=== PATIENT | male | born 1950 | race Caucasian/White ===

== ENCOUNTER 2021-02-05 17:20 | Inpatient (IN) | payer MEDICARE, OTHER ==
[~2021-02-05] VITALS: Ht 185.4 cm; Wt 142.3 kg
[2021-02-05] MEDS ORDERED: SODIUM CHLORIDE 0.9% 1,000 ML IVB ONE (17:30)
[2021-02-05] MEDS ORDERED: cefTRIAXone 1GM/50ML D5W 50 ML IV ONE (18:00)
[2021-02-05 18:10] LABS: Basophils # (auto) 0 10 ^3/uL (0-0.2); Basophils % (auto) 0.2 % (0.0-2.0); Eosinophils # (auto) 0 10 ^3/uL (0-0.8); Hematocrit 44.3 % (41.0-53.0); Hemoglobin 14.7 g/dL (13.5-17.5); Lymphocytes # (auto) 0.4 10 ^3/uL (0.4-5.4); Lymphocytes % (auto) 2.1 % (10.0-50.0); Mean Corpuscular Hemoglobin 30.3 pg (28.0-32.0); Mean Corpuscular Hgb Conc. 33.3 g/dL (32.0-36.0); Mean Corpuscular Volume 91.1 fL (80.0-100.0); Monocytes # (auto) 1.7 10 ^3/uL (0-1.3); Monocytes % (auto) 8.3 % (0.0-12.0); Neutrophils # (auto) 18.2 10 ^3/uL (1.6-8.6); Neutrophils % (auto) 89.4 % (37.0-80.0); Nucleated Red Blood Cells % 0.1 %; Platelet Count (auto) 384 10^3/uL (140-450); Red Blood Cells 4.86 10^6/uL (4.5-5.90); Red Cell Distribution Width 15.4 % (11.8-14.3); White Blood Cell 20.4 10^3/uL (4.4-10.8)
[2021-02-05 18:21] LABS: INR 1.51 (0.9-1.15); Partial Thromboplastin Time 36.7 sec (23.0-31.2)
[2021-02-05 18:29] LABS: Albumin 2.1 g/dL (3.4-5.0); Calcium 8.1 mg/dL (8.5-10.1); Potassium 4.5 mmol/L (3.5-5.1)
[2021-02-05 18:39] LABS: BUN/Creatinine Ratio 24.4; Total Protein 5.2 g/dL (6.4-8.2)
[2021-02-05] MEDS ORDERED: ACETAMINOPHEN 325 MG TAB PO ONE (19:00)
[2021-02-05] MEDS ORDERED: CLINDAMYCIN 600MG IV 50 ML IV ONE (19:15)
[2021-02-05] MEDS ORDERED: IBUPROFEN 800 MG TAB PO ONE (20:00)
[2021-02-05] MEDS ORDERED: NOREPINEPHRINE 8 MG/250ML KIT 250 ML IV ONE (21:15)
[2021-02-05] MEDS: NOREPINEPHRINE 8 MG/250ML KIT 250 ML IV SCH (21:44)
[2021-02-06] VITALS (51 sets, daily range): BP systolic 85–135; BP diastolic 53–91
[2021-02-06] MEDS ORDERED: VANCOMYCIN PER PHARMACY 0 MG IV SCH (00:45)
[2021-02-06] MEDS ORDERED: SOD CHL 0.45% 1,000 ML IV SCH (00:45)
[2021-02-06] MEDS ORDERED: ONDANSETRON HCL 4 MG/2 ML VIAL IV PRN (00:45)
[2021-02-06] MEDS ORDERED: MORPHINE SULF INJ 2 MG/ML SYRINGE 1ML IV PRN (00:45)
[2021-02-06] MEDS ORDERED: ALBUMIN 5% 250 ML IV ONE (00:45)
[2021-02-06] MEDS ORDERED: NITROGLYCERIN 0.4 MG SL TAB SL PRN (00:45)
[2021-02-06] MEDS ORDERED: HYDROcodone-ACET 5/325MG TAB PO PRN (00:45)
[2021-02-06] MEDS ORDERED: MORPHINE SULFATE 4 MG/ML SYR/VIAL IV PRN (00:45)
[2021-02-06] MEDS ORDERED: ACETAMINOPHEN 325 MG TAB PO PRN (00:45)
[2021-02-06] MEDS ORDERED: DOCUSATE SOD 100 MG CAP PO PRN (00:45)
[2021-02-06] MEDS ORDERED: VANCOMYCIN 1GM/250ML 250 ML IV ONE (01:30)
[2021-02-06 08:17] LABS: Basophils # (auto) 0.1 10 ^3/uL (0-0.2); Eosinophils # (auto) 0 10 ^3/uL (0-0.8); Eosinophils % (auto) 0.1 % (0.0-7.0); Hemoglobin 14.9 g/dL (13.5-17.5); Mean Corpuscular Hgb Conc. 33.1 g/dL (32.0-36.0); Neutrophils # (auto) 23.9 10 ^3/uL (1.6-8.6); Nucleated Red Blood Cells % 0.1 %; Red Blood Cells 4.94 10^6/uL (4.5-5.90)
[2021-02-06 08:19] LABS: Basophils % (auto) 0.2 % (0.0-2.0); Lymphocytes # (auto) 1.2 10 ^3/uL (0.4-5.4); Lymphocytes % (auto) 4.1 % (10.0-50.0); Mean Corpuscular Hemoglobin 30.2 pg (28.0-32.0); Monocytes # (auto) 3.3 10 ^3/uL (0-1.3); Monocytes % (auto) 11.5 % (0.0-12.0); Neutrophils % (auto) 84.1 % (37.0-80.0); Platelet Count (auto) 545 10^3/uL (140-450); Red Cell Distribution Width 15.7 % (11.8-14.3); White Blood Cell 28.4 10^3/uL (4.4-10.8)
[2021-02-06 08:29] LABS: Calcium 8.1 mg/dL (8.5-10.1); Potassium 4.2 mmol/L (3.5-5.1)
[2021-02-06 08:33] LABS: BUN/Creatinine Ratio 29.9; Bilirubin, Total 1.4 mg/dL (0.2-1.0); Total Protein 5.2 g/dL (6.4-8.2)
[2021-02-06] MEDS: ASCORBIC ACID 500 MG TAB PO SCH ×2 (10:00→19:37)
[2021-02-06] MEDS: MULTIPLE VITAMIN TAB PO SCH (10:00)
[2021-02-06] MEDS ORDERED: HEPARIN SODIUM (PORCINE) 5000 UNITS/ML 1ML VIAL SC SCH (10:00)
[2021-02-06] MEDS: FAMOTIDINE (10MG/ML) 2ML VL IV SCH ×2 (10:00→19:37)
[2021-02-06] MEDS: ZINC SULFATE 220mg CAP or TAB PO SCH (10:00)
[2021-02-06] MEDS ORDERED: ENOXAPARIN SOD 120 MG/0.8 ML SYRINGE SC ONE (12:15)
[2021-02-06] MEDS ORDERED: MIRT-66 OR (12:29)
[2021-02-06] MEDS ORDERED: ACET300T2 PO (12:29)
[2021-02-06] MEDS ORDERED: FURO20TA3 PO (12:29)
[2021-02-06] MEDS ORDERED: SILD25TA15 PO (12:29)
[2021-02-06] MEDS ORDERED: METO25TA36 PO (12:29)
[2021-02-06] MEDS ORDERED: DICL1GEL50 TD (12:29)
[2021-02-06] MEDS ORDERED: LISI40TA11 PO (12:29)
[2021-02-06] MEDS ORDERED: TADA5TAB11 PO (12:29)
[2021-02-06] MEDS ORDERED: DABI150C5 PO (12:29)
[2021-02-06] MEDS ORDERED: FAMO20TA10 GT (12:29)
[2021-02-06] MEDS ORDERED: SPIR50TA5 PO (12:29)
[2021-02-06] MEDS: VANCOMYCIN 1GM/250ML 250 ML IV SCH (14:45)
[2021-02-06] MEDS ORDERED: IOPAMIDOL 76 % (ISOVUE-370) 100ML BTL IV ONE (15:27)
[2021-02-06] MEDS: MEROPENEM 1GM IVPB 100 ML IV SCH ×2 (16:30→19:36)
[2021-02-06] MEDS: ENOXAPARIN SOD 120 MG/0.8 ML SYRINGE SC SCH (19:38)
[2021-02-06] MEDS: NOREPINEPHRINE 8 MG/250ML KIT 250 ML IV SCH (22:54)
[2021-02-07] VITALS (42 sets, daily range): BP systolic 79–126; BP diastolic 45–88
[2021-02-07] MEDS: VANCOMYCIN 1GM/250ML 250 ML IV SCH ×2 (01:41→16:58)
[2021-02-07 04:23] LABS: Basophils # (auto) 0 10 ^3/uL (0-0.2); Basophils % (auto) 0.2 % (0.0-2.0); Eosinophils # (auto) 0 10 ^3/uL (0-0.8); Eosinophils % (auto) 0.1 % (0.0-7.0); Hematocrit 39.9 % (41.0-53.0); Hemoglobin 13.5 g/dL (13.5-17.5); Lymphocytes # (auto) 0.5 10 ^3/uL (0.4-5.4); Lymphocytes % (auto) 3.1 % (10.0-50.0); Mean Corpuscular Hemoglobin 30.4 pg (28.0-32.0); Mean Corpuscular Hgb Conc. 33.8 g/dL (32.0-36.0); Monocytes # (auto) 1.7 10 ^3/uL (0-1.3); Monocytes % (auto) 10.1 % (0.0-12.0); Neutrophils # (auto) 14.6 10 ^3/uL (1.6-8.6); Neutrophils % (auto) 86.5 % (37.0-80.0); Platelet Count (auto) 360 10^3/uL (140-450); Red Blood Cells 4.44 10^6/uL (4.5-5.90); Red Cell Distribution Width 15.6 % (11.8-14.3); White Blood Cell 16.8 10^3/uL (4.4-10.8)
[2021-02-07 04:39] LABS: Potassium 3.9 mmol/L (3.5-5.1)
[2021-02-07 04:46] LABS: Albumin 1.7 g/dL (3.4-5.0); BUN/Creatinine Ratio 29.1; Total Protein 4.7 g/dL (6.4-8.2)
[2021-02-07] MEDS: MEROPENEM 1GM IVPB 100 ML IV SCH ×3 (04:49→21:50)
[2021-02-07] MEDS ORDERED: LEVOTHYROXINE SODIUM 50 MCG TAB PO ONE (08:45)
[2021-02-07] MEDS: ENOXAPARIN SOD 120 MG/0.8 ML SYRINGE SC SCH ×2 (09:15→21:51)
[2021-02-07] MEDS: MULTIPLE VITAMIN TAB PO SCH (09:15)
[2021-02-07] MEDS: FAMOTIDINE (10MG/ML) 2ML VL IV SCH ×2 (09:15→21:50)
[2021-02-07] MEDS: ZINC SULFATE 220mg CAP or TAB PO SCH (09:15)
[2021-02-07] MEDS: ASCORBIC ACID 500 MG TAB PO SCH ×2 (09:15→21:51)
[2021-02-07 12:45] LABS: Urine WBC None Seen /hpf (0 - 3)
[2021-02-07 13:19] LABS: Urine Bacteria FEW /hpf (None Seen); Urine Blood Negative /uL (Negative); Urine Specific Gravity 1.038 (1.001-1.035)
[2021-02-07] MEDS ORDERED: IBUPROFEN 600 MG TAB PO ONE (19:45)
[2021-02-07] MEDS: NOREPINEPHRINE 8 MG/250ML KIT 250 ML IV SCH (21:15)
[2021-02-08] VITALS (23 sets, daily range): BP systolic 74–121; BP diastolic 41–77
[2021-02-08] MEDS: VANCOMYCIN 1GM/250ML 250 ML IV SCH ×2 (01:00→13:11)
[2021-02-08 04:26] LABS: Basophils # (auto) 0.1 10 ^3/uL (0-0.2); Basophils % (auto) 0.4 % (0.0-2.0); Eosinophils # (auto) 0.1 10 ^3/uL (0-0.8); Eosinophils % (auto) 0.6 % (0.0-7.0); Hematocrit 40.8 % (41.0-53.0); Hemoglobin 13.5 g/dL (13.5-17.5); Lymphocytes % (auto) 7.2 % (10.0-50.0); Mean Corpuscular Hemoglobin 30.2 pg (28.0-32.0); Mean Corpuscular Hgb Conc. 33.1 g/dL (32.0-36.0); Mean Corpuscular Volume 91.2 fL (80.0-100.0); Monocytes # (auto) 1.7 10 ^3/uL (0-1.3); Monocytes % (auto) 11.8 % (0.0-12.0); Neutrophils # (auto) 11.4 10 ^3/uL (1.6-8.6); Platelet Count (auto) 374 10^3/uL (140-450); Red Blood Cells 4.47 10^6/uL (4.5-5.90); Red Cell Distribution Width 15.5 % (11.8-14.3); White Blood Cell 14.2 10^3/uL (4.4-10.8)
[2021-02-08 04:42] LABS: Potassium 5.1 mmol/L (3.5-5.1)
[2021-02-08 04:45] LABS: BUN/Creatinine Ratio 25.8; Calcium 8.2 mg/dL (8.5-10.1); Magnesium 2.1 mg/dL (1.6-2.6); Phosphorus 2.6 mg/dL (2.5-4.90)
[2021-02-08] MEDS: MEROPENEM 1GM IVPB 100 ML IV SCH ×2 (06:00→14:00)
[2021-02-08] MEDS ORDERED: LEVOTHYROXINE SODIUM 50 MCG TAB PO SCH (07:00)
[2021-02-08] MEDS: ASCORBIC ACID 500 MG TAB PO SCH (10:00)
[2021-02-08] MEDS: ENOXAPARIN SOD 120 MG/0.8 ML SYRINGE SC SCH (10:00)
[2021-02-08] MEDS: ZINC SULFATE 220mg CAP or TAB PO SCH (10:00)
[2021-02-08] MEDS: MULTIPLE VITAMIN TAB PO SCH (10:00)
[2021-02-08] MEDS: FAMOTIDINE (10MG/ML) 2ML VL IV SCH (10:12)
== END 2021-02-08 18:45 | disposition short-term general hospital (02) | DRG 871 ==
LOC: EDBD 17:20 → ER 17:20 → TELE 02-06 01:00 → ICU WEST 02-06 06:30 → TELE-EAST 02-08 14:45
PROVIDERS: ADMIT Nurse Practitioner Family; ATTEND Internal Medicine
PROC: 05HC33Z Insertion of Infusion Device into Left Basilic Vein, Percutaneous Approach (ICD-10-PCS; principal; 2021-02-07)
PROC: B54NZZA Ultrasonography of Left Upper Extremity Veins, Guidance (ICD-10-PCS; 2021-02-07)
DX: A41.9 Sepsis, unspecified organism (principal); I50.43 Acute on chronic combined systolic (congestive) and diastolic (congestive) heart failure; R65.21 Severe sepsis with septic shock; U07.1 COVID-19; L03.116 Cellulitis of left lower limb; J91.8 Pleural effusion in other conditions classified elsewhere; Z68.1 Body mass index [BMI] 19.9 or less, adult; L97.909 Non-pressure chronic ulcer of unspecified part of unspecified lower leg with unspecified severity; I48.20 Chronic atrial fibrillation, unspecified; E03.9 Hypothyroidism, unspecified; E86.9 Volume depletion, unspecified; I73.9 Peripheral vascular disease, unspecified; K74.60 Unspecified cirrhosis of liver; E66.01 Morbid (severe) obesity due to excess calories; E78.5 Hyperlipidemia, unspecified; I11.0 Hypertensive heart disease with heart failure; K76.0 Fatty (change of) liver, not elsewhere classified; K21.9 Gastro-esophageal reflux disease without esophagitis; I89.0 Lymphedema, not elsewhere classified; S81.802A Unspecified open wound, left lower leg, initial encounter; X58.XXXA Exposure to other specified factors, initial encounter; Y93.89 Activity, other specified; Y92.89 Other specified places as the place of occurrence of the external cause; Y99.8 Other external cause status
CPT/HCPCS: 36415; 71045; 75635; 76604; 76775; 80048; 80053; 80202; 81001; 83036; 83605; 83735; 83880; 84100; 84439; 84443; 85025; 85610; 85652; 85730; 86141; 86850; 86900; 86901; 87040; 87076; 87081; 87086; 87205; 87426; 93306; 93926; 93970; 96361; 96365; 96366; 96367; 99291; G0378; J0696; J2185; J3490

== ENCOUNTER 2021-08-22 11:45 | Emergency (ER) | payer MEDICARE, OTHER ==
[~2021-08-22] VITALS: Ht 182.9 cm; Wt 127.0 kg
[~2021-08-22 11:45] MED LIST: ACET300T2 PO; DABI150C5 PO; DICL1GEL50 TD; FAMO20TA10 GT; FURO20TA3 PO; MAGN400T40 PO; MIRT1TAB38 PO; RIFA550T PO; SILD25TA15 PO; SPIR50TA5 PO
[2021-08-22] MEDS ORDERED: FUROSEMIDE 40 MG/4 ML VIAL IV ONE (12:00)
[2021-08-22] MEDS ORDERED: cefTRIAXone 1GM/50ML D5W 50 ML IV ONE (12:30)
[2021-08-22] MEDS ORDERED: CLINDAMYCIN 900MG IV 50 ML IV ONE (12:30)
[2021-08-22 13:07] LABS: Hematocrit 42.2 % (41.0-53.0); Hemoglobin 13.9 g/dL (13.5-17.5); Mean Corpuscular Hemoglobin 27.2 pg (28.0-32.0); Mean Corpuscular Hgb Conc. 32.9 g/dL (32.0-36.0); Mean Corpuscular Volume 82.7 fL (80.0-100.0)
[2021-08-22 13:09] LABS: Red Cell Distribution Width 20.1 % (11.8-14.3)
[2021-08-22 13:12] LABS: INR 1.21 (0.9-1.15); Partial Thromboplastin Time 29.3 sec (23.6-33.0); White Blood Cell 31.6 10^3/uL (4.4-10.8)
[2021-08-22 13:13] LABS: Basophils % (manual) 0 (0.0-2.0); Blast Cells 0; Eosinophils % (manual) 0 (0-7); Metamyelocytes % 0; Myelocytes % 0; Promyelocytes % 0; Reactive Lymphocytes 0
[2021-08-22 13:16] LABS: Albumin 1.6 g/dL (3.4-5.0); Anion Gap 6 (5-15); Blood Urea Nitrogen 24 mg/dL (7-18); Calcium 7.9 mg/dL (8.5-10.1); Carbon Dioxide 25 mmol/L (21-32); Chloride 109 mmol/L (98-107); Glucose 112 mg/dL (74-106); Potassium 4.2 mmol/L (3.5-5.1); Sodium 140 mmol/L (136-145)
[2021-08-22 13:20] LABS: Alanine Aminotransferase 30 U/L (16-61); Alkaline Phosphatase 138 U/L (45-117); Aspartate Aminotransferase 37 U/L (15-37); BUN/Creatinine Ratio 24.5; Bilirubin, Total 1.2 mg/dL (0.2-1.0); GFR African American 97 mL/min; GFR Non-African American 80 mL/min; Total Protein 5.1 g/dL (6.4-8.2)
[2021-08-22 14:41] LABS: Band Neutrophils % (manual) 24; Lymphocytes % (manual) 3 (10.0-50.0); Monocytes % (manual) 4 (0-12)
[2021-08-22 16:51] LABS: Urine Bacteria FEW /hpf (None Seen); Urine Blood Negative /uL (Negative); Urine Mucus FEW (None Seen); Urine Specific Gravity 1.014 (1.001-1.035); Urine WBC 1 /hpf (0 - 3)
[2021-08-23 10:50] VITALS: BP 105/74
== END 2021-08-23 14:55 | disposition short-term general hospital (02) ==
LOC: ER 11:45 → EDBD 11:45 → ER 08-23 14:55
DX: A41.9 Sepsis, unspecified organism (principal); I50.9 Heart failure, unspecified; I48.91 Unspecified atrial fibrillation; E78.5 Hyperlipidemia, unspecified; Z20.822 Contact with and (suspected) exposure to COVID-19
CPT/HCPCS: 36415; 71045; 73700; 80053; 81001; 83605; 83880; 84484; 85007; 85027; 85610; 85730; 87040; 87426; 93005; 93970; 96365; 96366; 96368; 96375; 99285; J0696; J1940; J3490

== ENCOUNTER 2021-09-08 20:08 | Inpatient (IN) | payer MEDICARE, OTHER ==
[~2021-09-08] VITALS: Ht 185.4 cm; Wt 140.2 kg
[2021-09-08 22:20] LABS: Hemoglobin 13.3 g/dL (13.5-17.5); Red Cell Distribution Width 19.5 % (11.8-14.3)
[2021-09-08 22:23] LABS: Hematocrit 40.6 % (41.0-53.0); Mean Corpuscular Hgb Conc. 32.9 g/dL (32.0-36.0); Mean Corpuscular Volume 82.3 fL (80.0-100.0); Red Blood Cells 4.94 10^6/uL (4.5-5.90)
[2021-09-08 22:25] LABS: White Blood Cell 30.8 10^3/uL (4.4-10.8)
[2021-09-08 22:27] LABS: Basophils % (manual) 0 (0.0-2.0); Blast Cells 0; Eosinophils % (manual) 0 (0-7); Lymphocytes % (manual) 0 (10.0-50.0); Metamyelocytes % 0; Myelocytes % 0; Promyelocytes % 0; Reactive Lymphocytes 0
[2021-09-08 22:30] LABS: INR 1.25 (0.9-1.15)
[2021-09-08 22:39] LABS: Albumin 1.8 g/dL (3.4-5.0); Calcium 8.4 mg/dL (8.5-10.1); Magnesium 2.1 mg/dL (1.6-2.6); Potassium 4.9 mmol/L (3.5-5.1)
[2021-09-08 22:41] LABS: Lactic Acid w/Reflex 2.5 mmol/L (0.4-2.0)
[2021-09-08 22:43] LABS: Band Neutrophils % (manual) 8; Monocytes % (manual) 2 (0-12)
[2021-09-08 22:47] LABS: BUN/Creatinine Ratio 21.6; Bilirubin, Total 1.5 mg/dL (0.2-1.0); CRP High Sensitivity 3.11 mg/dL (< 0.3); Total Protein 5.5 g/dL (6.4-8.2)
[2021-09-08] MEDS ORDERED: SODIUM CHLORIDE 0.9% 2,000 ML IV ONE (23:30)
[2021-09-08] MEDS ORDERED: PIPERACILLIN-TAZOB 2.25GM 50 ML IV ONE (23:30)
[2021-09-08] MEDS ORDERED: VANCOMYCIN 1GM/250ML 250 ML IV ONE (23:30)
[2021-09-09] MEDS ORDERED: SODIUM CHLORIDE 0.9% 1,000 ML IV ONE (01:00)
[2021-09-09 04:55] LABS: Lactic Acid w/Reflex 2.2 mmol/L (0.4-2.0)
[2021-09-09] MEDS ORDERED: ONDANSETRON HCL 4 MG/2 ML VIAL IV PRN (06:00)
[2021-09-09] MEDS ORDERED: MORPHINE SULFATE INJECTION 2 MG/ML SYRG IV PRN (06:00)
[2021-09-09] MEDS ORDERED: NITROGLYCERIN 0.4 MG SL TAB SL PRN (06:00)
[2021-09-09] MEDS ORDERED: VANCOMYCIN PER PHARMACY 0 MG IV SCH (06:00)
[2021-09-09] MEDS ORDERED: ALBUMIN 5% 250 ML IV ONE (06:00)
[2021-09-09] MEDS ORDERED: rifAXIMin 550 MG TAB PO SCH (10:00)
[2021-09-09] MEDS: FUROSEMIDE 40 MG TAB PO SCH (10:36)
[2021-09-09] MEDS: PIPERACILLIN-TAZOB 3.375GM 100 ML IV SCH ×3 (10:36→18:14)
[2021-09-09] MEDS: PANTOPRAZOLE 40 MG TAB PO SCH (10:37)
[2021-09-09] MEDS: DABIGATRAN 75 MG CAP PO SCH ×2 (10:37→22:16)
[2021-09-09] MEDS ORDERED: VANCOMYCIN 1GM/250ML 250 ML IV SCH (15:00)
[2021-09-09] MEDS: DOPamine 1600MCG/ML D5W 250 ML IV SCH (20:50)
[2021-09-09 23:35] VITALS: BP 114/72
[2021-09-10] MEDS: PIPERACILLIN-TAZOB 3.375GM 100 ML IV SCH ×5 (00:24→23:06)
[2021-09-10 02:16] VITALS: BP 114/72
[2021-09-10 02:27] LABS: Protein, Urine 13.8 mg/dL (0.0-11.9)
[2021-09-10 03:41] LABS: Creatinine, Urine 70.6 mg/dL (30.0-125.0)
[2021-09-10 05:08] VITALS: BP 103/71
[2021-09-10] MEDS ORDERED: FURO40TA4 PO (05:17)
[2021-09-10 05:57] LABS: Eosinophils # (auto) 0.1 10 ^3/uL (0-0.8); Hematocrit 35.3 % (41.0-53.0); Lymphocytes # (auto) 0.9 10 ^3/uL (0.4-5.4); Monocytes # (auto) 0.8 10 ^3/uL (0-1.3); Neutrophils # (auto) 11.2 10 ^3/uL (1.6-8.6)
[2021-09-10 05:59] LABS: Basophils # (auto) 0.1 10 ^3/uL (0-0.2); Basophils % (auto) 0.4 % (0.0-2.0); Hemoglobin 11.4 g/dL (13.5-17.5); Lymphocytes % (auto) 6.8 % (10.0-50.0); Mean Corpuscular Hemoglobin 26.7 pg (28.0-32.0); Mean Corpuscular Hgb Conc. 32.3 g/dL (32.0-36.0); Mean Corpuscular Volume 82.8 fL (80.0-100.0); Monocytes % (auto) 6.3 % (0.0-12.0); Neutrophils % (auto) 85.5 % (37.0-80.0); Nucleated Red Blood Cells % 0.1 %; Red Blood Cells 4.26 10^6/uL (4.5-5.90); Red Cell Distribution Width 19.3 % (11.8-14.3); White Blood Cell 13.1 10^3/uL (4.4-10.8)
[2021-09-10 06:15] LABS: Albumin 1.6 g/dL (3.4-5.0); Calcium 7.9 mg/dL (8.5-10.1); Phosphorus 3.4 mg/dL (2.5-4.90); Potassium 4.2 mmol/L (3.5-5.1)
[2021-09-10 06:18] LABS: BUN/Creatinine Ratio 23.2; Bilirubin, Total 0.6 mg/dL (0.2-1.0); Total Protein 5.1 g/dL (6.4-8.2)
[2021-09-10 09:00] VITALS: BP 107/71
[2021-09-10] MEDS: PANTOPRAZOLE 40 MG TAB PO SCH (09:11)
[2021-09-10] MEDS: DABIGATRAN 75 MG CAP PO SCH ×2 (09:11→21:28)
[2021-09-10] MEDS: FUROSEMIDE 40 MG TAB PO SCH (09:12)
[2021-09-10] MEDS: VANCOMYCIN 1GM/250ML 250 ML IV SCH (09:12)
[2021-09-10 13:00] VITALS: BP 105/66
[2021-09-10 16:44] VITALS: BP 129/63
[2021-09-10] MEDS: DOPamine 1600MCG/ML D5W 250 ML IV SCH (18:07)
[2021-09-10 22:00] VITALS: BP 98/67
[2021-09-11] MEDS: VANCOMYCIN 1GM/250ML 250 ML IV SCH ×2 (01:26→18:22)
[2021-09-11 05:00] VITALS: BP 108/69
[2021-09-11 05:09] LABS: Basophils # (auto) 0 10 ^3/uL (0-0.2); Basophils % (auto) 0.4 % (0.0-2.0); Eosinophils # (auto) 0.2 10 ^3/uL (0-0.8); Eosinophils % (auto) 1.7 % (0.0-7.0); Hematocrit 35.2 % (41.0-53.0); Hemoglobin 11.5 g/dL (13.5-17.5); Lymphocytes # (auto) 0.7 10 ^3/uL (0.4-5.4); Lymphocytes % (auto) 6.8 % (10.0-50.0); Mean Corpuscular Hemoglobin 27.1 pg (28.0-32.0); Mean Corpuscular Hgb Conc. 32.7 g/dL (32.0-36.0); Monocytes % (auto) 9.1 % (0.0-12.0); Neutrophils # (auto) 8.9 10 ^3/uL (1.6-8.6); Nucleated Red Blood Cells % 0.1 %; Red Blood Cells 4.24 10^6/uL (4.5-5.90); Red Cell Distribution Width 19.5 % (11.8-14.3); White Blood Cell 10.8 10^3/uL (4.4-10.8)
[2021-09-11 05:49] LABS: Potassium 3.8 mmol/L (3.5-5.1)
[2021-09-11 05:57] LABS: Albumin 1.5 g/dL (3.4-5.0); BUN/Creatinine Ratio 22.2
[2021-09-11] MEDS: PIPERACILLIN-TAZOB 3.375GM 100 ML IV SCH ×3 (06:03→18:00)
[2021-09-11] MEDS: ACETAMINOPHEN 325 MG TAB PO PRN ×2 (06:10→22:06)
[2021-09-11 06:12] LABS: Bilirubin, Total 0.6 mg/dL (0.2-1.0)
[2021-09-11 09:00] VITALS: BP 101/68
[2021-09-11] MEDS: FUROSEMIDE 40 MG TAB PO SCH (09:33)
[2021-09-11] MEDS: DABIGATRAN 75 MG CAP PO SCH ×2 (09:33→22:05)
[2021-09-11] MEDS: PANTOPRAZOLE 40 MG TAB PO SCH (09:33)
[2021-09-11 13:00] VITALS: BP 107/79
[2021-09-11] MEDS: rifAXIMin 550 MG TAB PO SCH (16:07)
[2021-09-11 17:00] VITALS: BP 102/72
[2021-09-11] MEDS: DOPamine 1600MCG/ML D5W 250 ML IV SCH (17:30)
[2021-09-11 22:00] VITALS: BP 107/70
[2021-09-12] MEDS: PIPERACILLIN-TAZOB 3.375GM 100 ML IV SCH ×3 (00:44→14:56)
[2021-09-12 05:00] VITALS: BP 95/75
[2021-09-12] MEDS: ACETAMINOPHEN 325 MG TAB PO PRN (05:42)
[2021-09-12 06:13] LABS: Basophils # (auto) 0 10 ^3/uL (0-0.2); Basophils % (auto) 0.3 % (0.0-2.0); Eosinophils # (auto) 0.2 10 ^3/uL (0-0.8); Eosinophils % (auto) 1.8 % (0.0-7.0); Hematocrit 34.6 % (41.0-53.0); Hemoglobin 11.4 g/dL (13.5-17.5); Lymphocytes # (auto) 0.8 10 ^3/uL (0.4-5.4); Lymphocytes % (auto) 8.7 % (10.0-50.0); Mean Corpuscular Hemoglobin 27.1 pg (28.0-32.0); Mean Corpuscular Hgb Conc. 33.1 g/dL (32.0-36.0); Monocytes # (auto) 1.1 10 ^3/uL (0-1.3); Neutrophils # (auto) 6.6 10 ^3/uL (1.6-8.6); Neutrophils % (auto) 76.2 % (37.0-80.0); Red Blood Cells 4.22 10^6/uL (4.5-5.90); Red Cell Distribution Width 18.9 % (11.8-14.3); White Blood Cell 8.7 10^3/uL (4.4-10.8)
[2021-09-12 06:30] LABS: Albumin 1.5 g/dL (3.4-5.0); Calcium 7.9 mg/dL (8.5-10.1)
[2021-09-12 06:33] LABS: BUN/Creatinine Ratio 22.7
[2021-09-12 06:36] LABS: Bilirubin, Total 0.8 mg/dL (0.2-1.0)
[2021-09-12 09:00] VITALS: BP 114/86
[2021-09-12] MEDS ORDERED: ALBUMIN 25% 100 ML IV ONE (09:15)
[2021-09-12] MEDS: VANCOMYCIN 1GM/250ML 250 ML IV SCH (09:24)
[2021-09-12] MEDS: DABIGATRAN 75 MG CAP PO SCH (11:13)
[2021-09-12] MEDS: rifAXIMin 550 MG TAB PO SCH (11:13)
[2021-09-12] MEDS: PANTOPRAZOLE 40 MG TAB PO SCH (11:13)
[2021-09-12] MEDS: FUROSEMIDE 40 MG TAB PO SCH (11:13)
[2021-09-12] MEDS ORDERED: MIDODRINE HCL 10 MG TAB PO SCH (12:00)
[2021-09-12 13:00] VITALS: BP 136/77
[2021-09-12 15:10] VITALS: BP 114/72
== END 2021-09-12 17:03 | disposition home or self-care (01) | DRG 871 ==
LOC: EDBD 20:08 → ER 20:08 → TELE 09-09 05:53 → TELE-WESTW 09-09 20:10
PROVIDERS: ADMIT Nurse Practitioner; ATTEND Family Medicine
DX: A41.9 Sepsis, unspecified organism (principal); R65.21 Severe sepsis with septic shock; N17.0 Acute kidney failure with tubular necrosis; E43 Unspecified severe protein-calorie malnutrition; J18.9 Pneumonia, unspecified organism; L03.116 Cellulitis of left lower limb; L03.115 Cellulitis of right lower limb; Z68.41 Body mass index [BMI] 40.0-44.9, adult; I48.20 Chronic atrial fibrillation, unspecified; Z20.822 Contact with and (suspected) exposure to COVID-19; K74.60 Unspecified cirrhosis of liver; I11.0 Hypertensive heart disease with heart failure; E55.9 Vitamin D deficiency, unspecified; E78.00 Pure hypercholesterolemia, unspecified; I50.9 Heart failure, unspecified; I89.0 Lymphedema, not elsewhere classified; K80.20 Calculus of gallbladder without cholecystitis without obstruction; Z80.6 Family history of leukemia; Z82.49 Family history of ischemic heart disease and other diseases of the circulatory system
CPT/HCPCS: 36415; 71045; 76775; 80053; 80202; 82306; 82565; 82570; 83605; 83735; 83880; 83970; 84100; 84156; 84300; 85007; 85025; 85027; 85610; 85652; 86141; 87040; 87081; 87426; 93971; 96361; 96365; G0378; J2543; P9047